=== PATIENT | female | born 1965 | race Caucasian/White ===

== ENCOUNTER → 2016-06-27 | Outpatient (CLI) | payer BC | END | disposition disaster alternative care site (69) | LOC: GBCOE 06-16 08:30 | DX: Z12.31 Encounter for screening mammogram for malignant neoplasm of breast (principal) | CPT/HCPCS: G0202 ==

== ENCOUNTER 2016-10-15 04:20 | Emergency (ER) | payer BC ==
--- NOTE | ~2016-10-15 | ER ---
PATIENT'S NAME: MARSHA SANCHES [facility] AGE: 51 Y [address] ROOM: [place] [address] LOCATION: [facility] ADMIT DATE: 10/15/2016 ER/Outpatient Report DISCHARGE DATE: FAMILY PHYSICIAN: PHYSICIAN, NO ATTENDING PHYSICIAN: Julia Waller Admission date and time documented in the medical record. I saw the patient at 0420 hours. CHIEF COMPLAINT: Acute alcohol intoxication. HISTORY OF PRESENT ILLNESS: This patient is a 51-year-old female, who was at a alliance party watching [employer]. She drank alcohol, mainly beer. Went to sleep and just prior to admission to the emergency room, she awoke startled from sleep, sat up in bed, walked to the bathroom, had a syncopal episode. The patient was noted to possibly have some seizure activity. 911 was dispatched, paramedics arrived, they did not find her postictal. They did see her have a possible second syncopal episode slumping to the floor. They did not really find that she was unconscious. The patient was saying that somebody slipped her some drugs unknowingly. The patient was brought to the emergency room by paramedics via ambulance for evaluation. On arrival, the patient was acutely intoxicated, slurring her speech. She did receive 2 mg of Ativan IV en route. The patient denied any chest pain, shortness of breath, abdominal pain. She had no nausea or vomiting. Was not incontinent. Was not postictal. Questionable syncopal episode. No fall or trauma. No recent colds, coughs, flus, fever, chills, or sweats. No headache; eyes, ears, nose, throat, neck, or spine pain. No joint or muscle swelling, redness, or pain. No skin eruptions or rash. The patient does have a history of anxiety. No endocrine problems or neuro changes. HOME MEDICATIONS: None. ALLERGIES: PENICILLIN, CODEINE. SOCIAL HISTORY: Nonsmoker. Does drink alcohol on a daily basis. SIGNIFICANT PAST MEDICAL HISTORY: Hypertension, gastroesophageal reflux, hiatal hernia, anxiety, alcohol abuse. OPERATIONS: Hiatal hernia surgery, hysterectomy. PATIENT'S NAME: MARSHA SANCHES [facility] AGE: 51 Y [address] ROOM: [place], [place] [address] LOCATION: [facility] ADMIT DATE: 10/15/2016 ER/Outpatient Report DISCHARGE DATE: FAMILY PHYSICIAN: PHYSICIAN, NO ATTENDING PHYSICIAN: Julia Waller REVIEW OF SYSTEMS: All systems reviewed by me are negative with the exception of those discussed in the history of the present illness. PHYSICAL EXAMINATION: VITAL SIGNS: Pulse 82, regular; respirations 18; blood pressure 122/66; O2 sat on room air is 93%. HEENT: Head; normocephalic. No abrasion, contusion, laceration, swelling of the scalp or face. Eyes; extraocular muscles intact. PERRL. Ears; clear TMs bilaterally. Nose; clear. Throat; clear. Mucous membranes moist. Breath smells of alcoholic beverage. NECK: No nuchal rigidity. No thyromegaly or cervical adenopathy. SPINE: Nontender. No deformity. LUNGS: Clear. Good air flow. No rales, rhonchi, or wheezes. HEART: Regular. Pulses are palpable. ABDOMEN: Soft, nondistended, nontender. Good bowel tones. No organomegaly or abnormal mass palpable. EXTREMITIES: No peripheral edema, cyanosis, or deformity. Moves all 4 extremities. NEURO: The patient is intoxicated. Cranial nerves intact. No lateralized sign. The patient is awake. Fairly cooperative. Knows that she is in the hospital. Knows her name. Knows her age. Knows where she is at. SKIN: Clear. LABORATORY DATA AND X-RAYS: EKG shows no acute ST elevation, ischemic changes. Sinus rhythm, no arrhythmia. Chest x-ray showed no acute infiltrate or changes. We will review x-ray with Radiology. White count is 5500, 39 segs, 47 lymphs, 8 monos, 5 eos, 2 basos. Hemoglobin is 13.2 with hematocrit of 38.6, platelet count is [id number]. PTT is 25, pro-time is 10.3 with an INR of 0.98. CMS was normal except for an elevated glucose of 112, elevated AST of 52. Magnesium is 2.5. Medical blood alcohol is elevated at 0.349. CPK was normal at 141. Point of care cardiac enzymes were normal. Acetaminophen, salicylate, serum levels were normal. CRP was less than 0.29. Free T4 and TSH were normal. Urine drug screen was negative. Urinalysis was clear. EMERGENCY DEPARTMENT COURSE: Did give the patient IV normal saline, fluids. Gave her Zofran IV for nausea and vomiting. The patient did have Ativan 2 mg IV en route on the ambulance for anxiety. IMPRESSION: 1. Acute alcohol intoxication and alcohol abuse. 2. Anxiety. PATIENT'S NAME: MARSHA SANCHES [facility] AGE: 51 Y [address] ROOM: [place] [address] LOCATION: [facility] ADMIT DATE: 10/15/2016 ER/Outpatient Report DISCHARGE DATE: FAMILY PHYSICIAN: PHYSICIAN, NO ATTENDING PHYSICIAN: Julia Waller 3. Hypertension. 4. History of gastroesophageal reflux with a hiatal hernia. PLAN: The patient was given IV fluids, IV Zofran, IV Ativan. Dismissed home. Observation. Activity as tolerated. Avoid alcohol. Fluids and diet as tolerated. Rest. Return to see personal physician as needed. Discussion ensued with the patient and her regarding my findings and recommendations. JULIA WALLER MD SDS/modl /[id number] d: 10/15/1603 t: 10/15/16 1810, OUTPATIENT REPORT
[2016-10-15 04:48] LABS: BILIRUBIN URINE NEGATIVE (NEGATIVE); BLOOD URINE NEGATIVE /UL (NEGATIVE); COLOR URINE YELLOW (YELLOW); GLUCOSE URINE NEGATIVE (NEGATIVE); KETONE URINE NEGATIVE (NEGATIVE); LEUKOCYTES URINE NEGATIVE /UL (NEGATIVE); NITRITE URINE NEGATIVE (NEGATIVE); PROTEIN URINE NEGATIVE (NEGATIVE); SPEC GRAVITY URINE 1.015 (1.003-1.035); TURBIDITY URINE CLEAR (CLEAR); UROBILINOGEN URINE NORMAL (NORMAL)
[2016-10-15 04:52] LABS: BASOPHIL # 0.1 K/uL (0.0-0.2); BASOPHIL % 1.6 %; EOSINOPHIL # 0.3 K/uL (0.0-0.5); EOSINOPHIL % 4.7 %; HEMATOCRIT 38.6 % (33.0-46.0); HEMOGLOBIN 13.2 g/dL (10.0-15.0); IMMATURE GRANULOCYTE % 0.2 %; LYMPHOCYTE # 2.6 K/uL (0.8-4.0); LYMPHOCYTE % 46.7 %; MCH 30.2 pg (27.0-34.0); MCHC 34.2 gm/dL (32.0-36.5); MCV 88.3 fl (83.0-98.0); MONOCYTE # 0.4 K/uL (0.0-1.0); MONOCYTE % 7.8 %; MPV 9.4 fl (9.4-12.4); NEUTROPHIL # (ANC) 2.2 K/uL (1.8-7.8); NRBC % 0 /100WBC (0-0.00); PLATELET COUNT 263 K/uL (150-450); RBC 4.37 M/uL (3.50-5.50); RDW-CV 13.1 % (11.9-14.6); WBC 5.5 K/uL (4.0-11.0)
[2016-10-15 04:58] LABS: AMPHETAMINE NEGATIVE (NEGATIVE); BARBITURATE NEGATIVE (NEGATIVE); COCAINE NEGATIVE (NEGATIVE); OPIATES NEGATIVE (NEGATIVE)
[2016-10-15 05:01] LABS: INR - (THERAPEUTIC) 0.98 (0.92-1.07); PROTIME 10.3 SECONDS (9.8-11.4); PTT 25 SECONDS (25-32)
[2016-10-15 05:12] LABS: ALBUMIN 3.9 gm/dL (3.5-5.0); ALK PHOS 71 IU/L (33-138); ALT 48 IU/L (12-78); ANION GAP 10.3 (10.0-19.0); AST 52 IU/L (10-40); BLOOD UREA NITROGEN 9 mg/dL (6-24); CALCIUM 8.5 mg/dL (8.5-10.5); CHLORIDE 108 mMol/L (96-110); CO2 26 mMol/L (22-32); CPK 141 IU/L (21-215); CREATININE 0.8 mg/dL (0.5-1.1); MAGNESIUM 2.5 mg/dL (1.8-2.6); POTASSIUM 4.3 mMol/L (3.7-5.1); SODIUM 140 mMol/L (135-145); TOTAL BILIRUBIN 0.2 mg/dL (0.0-1.5); TOTAL PROTEIN 7.8 g/dL (6.0-8.4)
== END 2016-10-15 05:32 | disposition disaster alternative care site (69) ==
LOC: GMED 04:20
PROVIDERS: Emergency Medicine
DX: F10.129 Alcohol abuse with intoxication, unspecified (principal); F41.9 Anxiety disorder, unspecified; I10 Essential (primary) hypertension; K21.9 Gastro-esophageal reflux disease without esophagitis; K44.9 Diaphragmatic hernia without obstruction or gangrene; Z88.0 Allergy status to penicillin; Z88.5 Allergy status to narcotic agent
CPT/HCPCS: G0480; J2405; J7030

== ENCOUNTER → 2016-10-15 | Outpatient (CLI) | payer BC | END | disposition disaster alternative care site (69) | LOC: GAMB 03:44 | DX: F41.9 Anxiety disorder, unspecified (principal); R56.9 Unspecified convulsions | CPT/HCPCS: A0422; A0425; A0427; J2060; J2405 ==